=== PATIENT | female | born 1965 | race African-American/Black ===

== ENCOUNTER 2021-06-10 03:58 | Emergency (ER) | payer OTHER, MEDICAID ==
[~2021-06-10] VITALS: Ht 170.2 cm; Wt 104.3 kg
[2021-06-10 03:58] VITALS: BP 125/81
--- NOTE | 2021-06-10 03:58 | NUR ---
TO BED VIA WHEEL CHAIR
[2021-06-10] MEDS ORDERED: KETOROLAC 60 MG/2 ML VIAL IM ONE (04:00)
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
[2021-06-10] MEDS ORDERED: NAPR-54 PO (05:54)
[2021-06-10 06:02] VITALS: BP 125/81
--- NOTE | 2021-06-10 06:02 | NUR ---
Patient discharged with v/s stable. Written and verbal after care instructions given and explained. Patient verbalized understanding. Ambulatory with steady gait. All questions addressed prior to discharge. Advised to follow up with PMD.
== END 2021-06-10 06:02 | disposition home or self-care (01) ==
LOC: MED 03:58
DX: M25.571 Pain in right ankle and joints of right foot (principal); M25.572 Pain in left ankle and joints of left foot; Z79.899 Other long term (current) drug therapy; V89.2XXA Person injured in unspecified motor-vehicle accident, traffic, initial encounter; Y93.89 Activity, other specified; Y92.89 Other specified places as the place of occurrence of the external cause; Y99.8 Other external cause status
CPT/HCPCS: 96372; 99283; J1885